=== PATIENT | male | born 1975 | race Hispanic/Latino ===

== ENCOUNTER 2024-04-01 11:14 | Inpatient (IN) | payer BC ==
--- OUTSIDE RECORDS SUMMARY | 2024-04-01 11:17 | XMS REPORT | Continuity of Care Document ---
Author Name Unknown Address [address] [facility] [facility] [address] [place] [address] [facility] thconnect Address [address] [facility] [place] [address] Care Team Providers Care Licensed Investment Sales Assistant Name Role Phone Dereck MINOR, Kandi Primary Care Physician Rhys TOBIN, Lizzette Gonzalez Attending Clinician Unavailab charli Slade MD, Mague Attending Clinician Jasen Finley Attending Clinician JASEN SCHWAB Attending Clinician Unavailable Doctor Unassigned, [place] Attending Clinician U navailable Payers Payer Name Policy Type Policy Number Effective Date Expirati on Date Source Problems Condition Name Condition Details Condition Category Status Onset Date Resolution Date Last Treatment Date Treating Clinician Comments Source No known active problems No known active problems Disease [facility] Allergies, Adverse Reactions, Alerts Allergy Name Allergy Type Status Severity Reaction(s) Onset Date Inactive Date Treating Clinician Comments Source Penicill ins Propensi ty to adverse reaction to drug Active 03-07 00:00: 00 Sai Banks NO KNOWN ALLERGIE S Drug Class Active [facility] Social History Social Habit Start Date Stop Date Quantity Comments Source Exposure to SARS-CoV-2 (event) 2022-05-03 00:00:00 2022-05-13 11:23:00 Not sure [facility] Sex Assigned At 1975 00:00:00 1975 00:00:00 [facility] Smoking Status Start Date Stop Date Source Tobacco smoking consumption unknown [facility] Medications Ordered Medication Name Filled Medication Name Start Date Stop Date Current Medication? Ordering Clinician Indication Dosage Frequency Signature (SIG) Comments Components Source cetirizine 10 mg tablet 03-07 00:00: 00 Yes 1mg Sai Banks losartan 25 mg tablet 03-07 00:00: 00 Yes 1mg Sai Banks cefdinir 300 mg capsule 03-07 00:00: 00 Yes 1mg Sai Banks USE 1 SPRAY IN EACH NOSTRIL ONCE DAILY. 05-08 00:00: 00 Yes 50 Sai Banks TAKE 1 TABLET EVERY MORNING NEEDED. 05-08 00:00: 00 Yes 10 Sai Banks TAKE 1 TABLET DIRECTED. 05-08 00:00: 00 11-18 00:00 :00 No 5 Sai Banks TOBRAMYCIN- DEXAMETH OPHTH SUSP 11-10 00:00: 00 Yes 301 Sai Banks BROMPHEN-PS E-DM 2-30-10 MG/5ML 05-13 00:00: 00 Yes [id number] Sai Banks TAKE 2 CAPSULES BY MOUTH EVERY 8 HOURS NEEDED FOR COUGH 05-13 00:00: 00 Yes Sai Banks bromphenira mine-pseudo ephedrine-D M (BROMFED DM) 2-30-10 mg/5 mL syrup 05-13 00:00: 00 Yes [id number] 5mL Take 5 mL by mouth 4 (four) times daily as needed for Congestion /Allergies . [facility] benzonatate 100 mg capsule 05-13 00:00: 00 Yes [id number] 200mg Take 2 capsules by mouth every 8 (eight) hours as needed for Cough. [facility] Immunizations Ordered Immunization Name Filled Immunization Name Date Status Comments Source Moderna COVID-19 Vaccine Moderna COVID-19 Vaccine 2021-03-14 00:00:00 Completed Sai Banks Moderna COVID-19 Vaccine Moderna COVID-19 Vaccine 2020-09-28 00:00:00 Completed Sai Banks Vital Signs Vital Name Observation Time Observation Value Comments S ource Systolic blood pressure 2022-05-13 16:24:00 138 mm[Hg] [facility] Diastolic blood pressure 2022-05-13 16:24:00 90 mm[Hg] [facility] Heart rate 2022-05-13 16:24:00 55 /min [facility] Body temperature 2022-05-13 16:24:00 36.5 Zulma [facility] Respiratory rate 2022-05-13 16:24:00 18 /min [facility] Body height 2022-05-13 16:24:00 162.6 cm [facility] Body weight 2022-05-13 16:24:00 70.126 kg [facility] BMI 2022-05-13 16:24:00 26.54 kg/m2 [facility] Oxygen saturation in Arterial blood by Pulse oximetry 2022-05-13 16:24:00 100 /min [facility] BP Systolic 2024-03-18 15:04:00 132 mm[Hg] Step hen Susan Banks BP Diastolic 2024-03-18 15:04:00 86 mm[Hg] Cem phen Susan Banks Weight Measured 2024-03-18 15:04:00 155.00 pounds Sai Banks Height Measured 2024-03-18 15:04:00 63.00 inches Sai Banks Body Temperature 2024-03-18 15:04:00 97.10 degrees Sai Banks Heart Rate 2024-03-18 15:04:00 64.00 /min Radha en F Darren Respiratory Rate 2024-03-18 15:04:00 18.00 /min Sai F Darren Heart Rate 2024-03-07 08:00:00 76.00 /min Radha en F Darren Respiratory Rate 2024-03-07 08:00:00 20.00 /min Sai F Darren BP Systolic 2024-03-07 08:00:00 138 mm[Hg] Step hen F Darren BP Diastolic 2024-03-07 08:00:00 100 mm[Hg] Cem phen Susan Banks Weight Measured 2024-03-07 08:00:00 159.00 pounds Sai Banks Height Measured 2024-03-07 08:00:00 63.00 inches Sai Banks Body Temperature 2024-03-07 08:00:00 97.50 degrees Sai F Darren BP Systolic 2024-02-08 15:44:00 122 mm[Hg] Step hen F Darren BP Diastolic 2024-02-08 15:44:00 76 mm[Hg] Cem phen F Darren Weight Measured 2024-02-08 15:44:00 158.00 pounds Sai F Darren Height Measured 2024-02-08 15:44:00 64.00 inches Sai F Darren Body Temperature 2024-02-08 15:44:00 97.90 degrees Sai F Darren Heart Rate 2024-02-08 15:44:00 70.00 /min Radha en F Darren Respiratory Rate 2024-02-08 15:44:00 18.00 /min Sai F Darren BP Systolic 2023-11-16 08:32:00 126 mm[Hg] Step hen F Darren BP Diastolic 2023-11-16 08:32:00 82 mm[Hg] Cem phen F Darren Weight Measured 2023-11-16 08:32:00 157.00 pounds Sai F Darren Height Measured 2023-11-16 08:32:00 64.00 inches Sai F Darren Body Temperature 2023-11-16 08:32:00 98.10 degrees Sai F Darren Heart Rate 2023-11-16 08:32:00 61.00 /min Radha en F Darren Respiratory Rate 2023-11-16 08:32:00 16.00 /min Sai F Darren BP Systolic 2023-09-21 08:19:00 130 mm[Hg] Step hen F Darren BP Diastolic 2023-09-21 08:19:00 78 mm[Hg] Cem phen F Darren Weight Measured 2023-09-21 08:19:00 161.00 pounds Sai F Darren Height Measured 2023-09-21 08:19:00 64.00 inches Sai F Darren Body Temperature 2023-09-21 08:19:00 97.60 degrees Sai F Darren Heart Rate 2023-09-21 08:19:00 66.00 /min Radha en F Darren Respiratory Rate 2023-09-21 08:19:00 20.00 /min Sai F Darren BP Systolic 2023-05-08 08:15:00 120 mm[Hg] Step hen F Darren BP Diastolic 2023-05-08 08:15:00 78 mm[Hg] Cem Banks Weight Measured 2023-05-08 08:15:00 155.00 pounds Sai Banks Height Measured 2023-05-08 08:15:00 64.00 inches Sai Bnaks Body Temperature 2023-05-08 08:15:00 98.40 degrees Sai Banks Heart Rate 2023-05-08 08:15:00 59.00 /min Radha en Susan Banks Respiratory Rate 2023-05-08 08:15:00 18.00 /min Sai Banks Procedures Procedure Date / Time Performed Performing Clinicia n Source POCT MOLECULAR FLU 2022-05-13 16:37:00 Jasen Schwab [facility] ASSIGNMENT OF BENEFITS 2022-05-13 16:09:30 Docto r Unassigned, Ossian [facility] Encounters Start Date/Time End Date/Time Encounter Type Admission Type Attending [facility] Facility Care Department Encounter ID Source 2024-03-18 14:55:18 2024-03-18 14:55:18 Outpatient [facility] [id number] Sai Banks 2024-03-18 00:00:00 2024-03-18 00:00:00 Outpatient Visit [facility] [id number] Sai Banks 2024-03-07 07:55:20 2024-03-07 07:55:20 Outpatient [facility] [id number] Sai Banks 2024-03-07 00:00:00 2024-03-07 00:00:00 Outpatient Visit [facility] [id number] Sai Banks 2022-05-14 00:00:00 2022-05-14 00:00:00 Letter (Out) Lizzette Joiner [facility] [id number] [facility] 2022-05-13 11:00:00 2022-05-13 11:41:25 Urgent Care Mague Slade, [facility] [id number] [facility] 2022-05-13 11:00:00 2022-05-13 11:41:25 Outpatient Myles SCHWAB [facility] [id number] [facility] 2022-05-13 11:00:00 2022-05-13 11:00:00 Outpatient Myles SCHWAB [facility] [id number] [facility] 2022-05-13 00:00:00 2022-05-13 00:00:00 Orders Only Doctor Unassigned, Ossian [facility] [id number] [facility] Results Test Description Test Time Test Comments Results Result Co mments Source [id number] 16:48:33* Test Item Value Reference Range Interpretation Comme nts POCT Molecular FluA (test co de = 40236-9) Negative Negative POCT Molecular FluB (test co de = 11849-6) Negative Negative Lab Interpretation (test cod e = [id number]) Normal [facility] Notes Date/Time Note Provider Source Sai DavisRuthie 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, SHOP, GO TO THE PARK, GET OUT OF THE HOUSE EVERYDAY 2023-05-08 BALANCED DIET WITH MEAT AND FRUITS AND V EGETABLES 2023-05-08 CETIRAZINE 10MG 1 PO QD - obando s otc- note for work RECOMMENDATIONS KEEP PETS OUTDOORS AND BATH THEM FREQUENTLY SINDY PLASTIC PILLOW AND MATTRESS COVERS CHANGE THE AIR CONDITIONING FILTER OR HEPA-FILTER VACUUM WINE MERCHANT STAY INDOORS WITH THE WINDOWS SHUT DURING YOUR ALLERGY SEASON IDENTIFY YOUR ALLERGENS THAT ARE GROWING AND AVOIDANCE- AVOID CIGARETTE SMOKE 2023-05-08 had fatigue -pt tested himse lf for COVID NEGATIVE /PT STATEMENT - NO FEVER TODAY - RETURN TO WORK NO RESTRICTIONS 2023-05-08 GREAT SHAPE diet and exercise 2023-09-21 wants to return to work with no restrict ions- feeling better 2023-11-[address] Pierce cardiolog ist [phone] brother has a congenital heart problem that required open heart surgery today f/u PRn 2024-02-08 Cefdinir 300MG 1 TAB PO BID- 10 DAYS ZYRTEC 1 TAB PO QD IBUPROFEN 400MG 1 OR 2 PO QD PRN FOR FEVER- pt obando at home REFUSED STREP TEST 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 DASH diet, Sodium reduction <2.4 g/day Weight reduction, Exercise 150 mins/wk Limit alcohol and caffeine consumption, Smoking cessation 2024-03-07 Sai Banks [facility]
[2024-04-01] MEDS ORDERED: NITROGLYCERIN 0.4 MG/TAB SL ONE (11:41)
[2024-04-01] MEDS ORDERED: ASPIRIN 81 MG CHEWABLE TABLET ONE (11:41)
[2024-04-01 12:24] LABS: Absolute Eosinophils 0.2 K/uL (0-0.5); Absolute Lymphocytes (CBC) 1.4 K/uL (0.7-4.9); Absolute Monocytes 0.5 K/uL (0.1-1.3); Absolute Neutrophil 3.3 K/uL (1.8-8.0); Basophils % 0.6 % (0-1.3); Eosinophils % 3.8 % (0-4.4); Hematocrit 48.1 % (39.6-49.0); Hemoglobin 15.9 g/dL (13.6-17.9); Lymphocytes % 25.1 % (15.3-44.8); MCH 29.3 pg (27.0-35.0); MPV 8.6 fL (7.6-11.3); Monocytes % 9.9 % (3.3-12.3); Neutrophils % 60.6 % (41.7-73.7); Platelets 204 thou/uL (152-406); RBC Red Blood Cell Count 5.41 M/uL (4.33-5.43); Red Cell Distribution Width 13.5 % (12.1-15.2)
[2024-04-01 12:30] LABS: Albumin/Globulin Ratio 1.1 (1.1-1.8); Anion Gap 9.9 mEq/L (5.0-15.0); Bilirubin Direct 0.2 mg/dL (0-0.2); Bilirubin Indirect, Calculated 0.7 mg/dL (0.2-0.8); Bilirubin Total 0.9 mg/dL (0.2-1.0); Globulin 3.5 g/dL (2.3-3.5); Magnesium 2.2 mg/dL (1.6-2.4); Potassium 3.9 mEq/L (3.5-5.1); Protein, Total 7.5 g/dL (6.4-8.2); Troponin High Sensitivity 4.5 pg/mL (<58.9)
[2024-04-01] MEDS ORDERED: HEPA 1000U/500MLS 2,000 UNIT/1,000 ML BAG IV ONE (12:35)
[2024-04-01] MEDS ORDERED: MIDAZOLAM HCL 2 MG/2 ML INJ ONE (12:36)
[2024-04-01] MEDS ORDERED: LIDOCAINE 1% 20 ML MDV ONE (12:36)
[2024-04-01] MEDS ORDERED: VERAPAMIL HCL 10 MG/4 ML VIAL IV ONE (12:36)
[2024-04-01] MEDS ORDERED: FENTANYL CITR 100 MCG/2 ML ONE (12:37)
[2024-04-01] MEDS ORDERED: HEPARIN 5000 UNIT/ML 1 ML VIAL ONE (12:37)
[2024-04-01] MEDS ORDERED: ATROPINE SULF 1 MG/10 ML SYR IV ONE (12:37)
[2024-04-01] MEDS ORDERED: TICAGRELOR 90 MG TABLET PO ONE (12:38)
[2024-04-01] MEDS ORDERED: HEPARIN 10,000 UNIT/10 ML VIAL IV ONE (12:38)
[2024-04-01] MEDS ORDERED: CLOPIDOGREL 75 MG TABLET ONE (12:38)
[2024-04-01] MEDS ORDERED: NITROGLYCERIN/D5W 50 MG/250 ML BTL IV ONE (12:39)
[2024-04-01] MEDS ORDERED: ASPIRIN 325 MG TAB ONE (12:39)
--- NOTE | 2024-04-01 12:47 | EDPHYS ---
Physician Documentation [facility] Name: Elmer Escalante Age: 48 yrs Sex: Male : 1975 Arrival Date: 04/01/2024 Time: 11:14 Bed 8 Private MD: ED Physician Pedro Heredia HPI: 04/01 11:43 This 48 yrs old Male presents to ER via Ambulatory with complaints of sent by rt pcp:abnormal stress test. 11:43 Patient was sent from Dr. Pierce's office for failed stress test, continued chest pain. rt Patient has had intermittent substernal chest pain for about a month. Denies aggravating relieving factors, denies other associated complaints. Symptoms are moderate in severity, no other aggravating or allieviating factors.. Historical: - Allergies: 11:36 PENICILLINS; hb - Home Meds: 11:36 None [Active]; hb - PMHx: 11:36 None; hb - PSHx: 11:36 None; hb - Immunization history:: Adult Immunizations up to date. - Infectious Disease History:: Denies. - Social history:: Smoking status: Patient denies any tobacco usage or history of. - Family history:: not pertinent. ROS: 11:43 Constitutional: Negative for fever, chills, and weight loss, Respiratory: Negative for rt shortness of breath, cough, wheezing, and pleuritic chest pain, Abdomen/GI: Negative for abdominal pain, nausea, vomiting, diarrhea, and constipation, MS/Extremity: Negative for injury and deformity, Skin: Negative for injury, rash, and discoloration, Neuro: Negative for headache, weakness, numbness, tingling, and seizure, 11:43 Cardiovascular: Positive for chest pain, Negative for edema, Exam: 11:43 Constitutional: This is a well developed, well nourished patient who is awake, alert, rt and in no acute distress. Chest/axilla: Normal chest wall appearance and motion. Nontender with no deformity. No lesions are appreciated. Cardiovascular: Regular rate and rhythm with a normal S1 and S2. No gallops, murmurs, or rubs. Normal PMI, no JVD. No pulse deficits. Respiratory: Lungs have equal breath sounds bilaterally, clear to auscultation and percussion. No rales, rhonchi or wheezes noted. No increased work of breathing, no retractions or nasal flaring. Abdomen/GI: Soft, non-tender, with normal bowel sounds. No distension or tympany. No guarding or rebound. No evidence of tenderness throughout. MS/ Extremity: Pulses equal, no cyanosis. Neurovascular intact. Full, normal range of motion. Neuro: Awake and alert, GCS 15, oriented to person, place, time, and situation. Cranial nerves II-XII grossly intact. Motor strength 5/5 in all extremities. Sensory grossly intact. Cerebellar exam normal. Normal gait. 11:43 ECG was reviewed by the Attending Physician. Vital Signs: 11:35 BP 141 / 90; Pulse 55; Resp 16; Temp 97.3; Pulse Ox 100% on R/A; Weight 69.85 kg; hb Height 5 ft. 4 in. ; Pain 1/10; 11:36 BP 141 / 89; Pulse 51; Resp 16; Pulse Ox 99% on R/A; db 11:50 BP 129 / 81; Pulse 57; Pulse Ox 95% ; Pain 0/10; db 12:25 BP 128 / 83; Pulse 52; Resp 16; Pulse Ox 96% on R/A; db 11:35 Body Mass Index 26.43 (69.85 kg, 162.56 cm) hb 11:35 Pain Scale: Adult hb 11:50 Pain Scale: Adult db 11:50 POST NITROGLYCERINE ADMINISTRATION X 1 db MDM: 11:28 Patient medically screened. rt 12:46 Differential Diagnosis ACS, CAD, chest pain. Data reviewed: vital signs, nurses notes. rt Consideration of Admission/Observation Patient was admitted/placed on observation. Management of patient was discussed with the following: Theater Company Producer: Curriculum Assistant Principal to take patient to the Mapping Specialist. Care significantly affected by the following chronic conditions: Hypertension. Counseling: I had a detailed discussion with the patient and/or guardian regarding the historical points, exam findings, and any diagnostic results supporting the discharge/admit diagnosis, lab results, the need for further work-up and treatment in the hospital. Response to treatment: There is no appreciated change of the patient's symptoms at this time. 04/01 11:34 Order name: Basic Metabolic Panel; Complete Time: 12:43 rt 04/01 11:34 Order name: CBC with Diff; Complete Time: 12:43 rt 04/01 11:34 Order name: LFT's; Complete Time: 12:43 rt 08 11:34 Order name: Magnesium; Complete Time: 12:43 rt 04/01 11:34 Order name: NT PRO-BNP; Complete Time: 12:43 rt 04/01 11:34 Order name: PT-INR; Complete Time: 13:20 rt 04/01 11:34 Order name: Troponin HS; Complete Time: 12:43 rt 04/01 11:34 Order name: Ptt, Activated; Complete Time: 13:20 rt 04/01 12:29 Order name: CL LEFT HEART WITHOUT LV EDMS 04/01 13:46 Order name: CL INTRO/SHEATH NON-PEEL HEART EDMS 04/01 13:46 Order name: CL LHRT CATH WITH ANGIO EDMS 04/01 13:46 Order name: CL TIME CHARGE 1ST HOUR EDMS 04/01 13:46 Order name: CL ULTRASOUND GUIDANCE ACCESS EDMS 04/01 11:34 Order name: Cardiac monitoring; Complete Time: 11:46 rt 04/01 11:34 Order name: EKG - Nurse/Tech; Complete Time: 11:46 rt 04/01 11:34 Order name: IV Saline Lock; Complete Time: 11:46 rt 04/01 11:34 Order name: Labs collected and sent; Complete Time: 11:46 rt 04/01 11:34 Order name: O2 Per Protocol; Complete Time: 11:46 rt 04/01 11:34 Order name: O2 Sat Monitoring; Complete Time: 11:46 rt EC:43 Rate is 50 beats/min. Rhythm is regular, Sinus bradycardia with Occasional PVCs. QRS rt [place] is Normal. SD interval is normal. QRS interval is normal. QT interval is normal. No Q waves. Clinical impression: NSR w/ Non-specific ST/T Changes. Administered Medications: 11:42 Drug: Aspirin PO Chewable Tablet 324 mg PO once; 81 mg tablets x 4 Route: PO; db 14:00 Follow up: Response: No adverse reaction db 11:45 Drug: Nitroglycerin Sublingual 0.4 mg Sublingual once; every five minute if needed x3 db Route: Sublingual; 14:00 Follow up: Response: No adverse reaction db Disposition Summary: 04/01/24 12:46 Hospitalization Ordered Notes: Hospitalization Status: Observation rt Provider: Javier Nichols rt Location: Telemetry/MedSurg (observation) rt Condition: Fair rt Problem: new rt Symptoms: are unchanged rt Bed/Room Type: Standard rt Room Assignment: rt Diagnosis - Chest pain, unspecified rt Discharge Instructions: - Discharge Summary Sheet bd Forms: - SBAR form bd - Medication Reconciliation Form rt - Leadership Thank You Letter rt Signatures: Dispatcher [employer] EDSonya Bustamante RN RN hb Benton, Danielle, RN RN db Turkington, Ryan, MD MD rt Corrections: (The following items were deleted from the chart) 11:34 11:34 BASIC METABOLIC PANEL+C.LAB.BRZ ordered. EDMS EDMS 11:34 11:34 CBC+H.LAB.BRZ ordered. EDMS EDMS 11:34 11:34 HEPATIC FUNCTION+C.LAB.BRZ ordered. EDMS EDMS 11:34 11:34 MAGNESIUM+C.LAB.BRZ ordered. EDMS EDMS 11:34 11:34 PROBNP+C.LAB.BRZ ordered. EDMS EDMS 11:34 11:34 PROTIME (+INR)+COAG.LAB.BRZ ordered. EDMS EDMS 11:34 11:34 Troponin High Sensitivity+C.LAB.BRZ ordered. EDMS EDMS 11:34 11:34 PTT, ACTIVATED+COAG.LAB.BRZ ordered. EDMS EDMS 11:34 11:34 Chest Single View+RAD.RAD.BRZ ordered. EDMS EDMS
--- NOTE | 2024-04-01 12:47 | ER ---
Nurse's Notes [facility] Name: Elmer Escalante Age: 48 yrs Sex: Male : 1975 Arrival Date: 04/01/2024 Time: 11:14 Bed 8 Private MD: Diagnosis: Chest pain, unspecified Presentation: 04/01 11:35 Chief complaint: Sent by Dr. Pierce for abnormal stress test. Pt c/o intermittent left hb sided chest pain x 1 month. Coronavirus screen: At this time, the client does not indicate any symptoms associated with coronavirus-19. Ebola Screen: No symptoms or risks identified at this time. Initial Sepsis Screen: Does the patient meet any 2 criteria? No. Patient's initial sepsis screen is negative. Does the patient have a suspected source of infection? No. Patient's initial sepsis screen is negative. Risk Assessment: Do you want to hurt yourself or someone else? Patient reports no desire to harm self or others. Onset of symptoms was February 2024. 11:35 Method Of Arrival: Ambulatory hb 11:35 Acuity: MARGIE 2 hb Triage Assessment: 11:37 General: Appears in no apparent distress. Behavior is calm, cooperative. Pain: Pain hb currently is 1 out of 10 on a pain scale. Neuro: Level of Consciousness is awake, alert, obeys commands, Oriented to person, place, time, situation. Cardiovascular: Reports chest pain, Patient's skin is warm and dry. Respiratory: Respiratory effort is even, unlabored, Respiratory pattern is regular, symmetrical. Historical: - Allergies: 11:36 PENICILLINS; hb - Home Meds: 11:36 None [Active]; hb - PMHx: 11:36 None; hb - PSHx: 11:36 None; hb - Immunization history:: Adult Immunizations up to date. - Infectious Disease History:: Denies. - Social history:: Smoking status: Patient denies any tobacco usage or history of. - Family history:: not pertinent. Screenin:04 [facility] ED Fall Risk Assessment (Adult) History of falling in the last 3 months, db including since admission No falls in past 3 months (0 pts) Confusion or Disorientation No (0 pts) Intoxicated or Sedated No (0 pts) Impaired Gait No (0 pts) Mobility Assist Device Used No (0 pt) Altered Elimination Yes (1 pt) Score/Fall Risk Level 0 - 2 = Low Risk Oriented to surroundings, Maintained a safe environment. Abuse screen: Denies threats or abuse. Denies injuries from another. Nutritional screening: No deficits noted. Tuberculosis screening: No symptoms or risk factors identified. Assessment: 11:40 Reassessment: Patient appears in no apparent distress at this time. Patient and/or db family updated on plan of care and expected duration. Pain level reassessed. Patient is alert, oriented x 3, equal unlabored respirations, skin warm/dry/pink. General: Appears in no apparent distress. comfortable, Behavior is calm, cooperative. Pain: Complains of pain in chest. Neuro: Level of Consciousness is awake, alert, obeys commands, Oriented to person, place, time, situation. Cardiovascular: Reports chest pain. Respiratory: Airway is patent Respiratory effort is even, unlabored, Respiratory pattern is regular, symmetrical. 12:03 General: Appears in no apparent distress. comfortable, Behavior is calm, cooperative. db 12:30 Reassessment: Patient appears in no apparent distress at this time. Patient and/or db family updated on plan of care and expected duration. Pain level reassessed. Patient is alert, oriented x 3, equal unlabored respirations, skin warm/dry/pink. Vital Signs: 11:35 BP 141 / 90; Pulse 55; Resp 16; Temp 97.3; Pulse Ox 100% on R/A; Weight 69.85 kg; hb Height 5 ft. 4 in. ; Pain 1/10; 11:36 BP 141 / 89; Pulse 51; Resp 16; Pulse Ox 99% on R/A; db 11:50 BP 129 / 81; Pulse 57; Pulse Ox 95% ; Pain 0/10; db 12:25 BP 128 / 83; Pulse 52; Resp 16; Pulse Ox 96% on R/A; db 11:35 Body Mass Index 26.43 (69.85 kg, 162.56 cm) hb 11:35 Pain Scale: Adult hb 11:50 Pain Scale: Adult db 11:50 POST NITROGLYCERINE ADMINISTRATION X 1 db Vitals: 11:50 Cardiac Rhythm Assessment Regular Junctional rhythm. db ED Course: 11:20 Patient arrived in ED. ra3 11:21 Pedro Heredia MD is Attending Physician. rt 11:36 Triage completed. hb 11:37 Arm band placed on. hb 11:42 EKG done, reviewed by Pedro Heredia MD. db 11:45 Stephanie Ortega, RN is Primary Nurse. db 11:50 Missed attempt(s): 20 gauge in left antecubital area. BY CASEWORKER. Bleeding controlled, db band aid applied, catheter tip intact. 11:58 Initial lab(s) drawn, by me, sent to lab. Inserted saline lock: 20 gauge in right db forearm, using aseptic technique. Blood collected. Flushed with 10 mL NS. 12:04 Patient has correct armband on for positive identification. Bed in low position. Call db light in reach. Side rails up X 1. Client placed on continuous cardiac and pulse oximetry monitoring. NIBP monitoring applied. cash grain grower on. Pulse ox on. NIBP on. Warm blanket given. 12:30 Provided Education on: ADMISSION TO OIL WELL SHOOTER. db 12:30 No provider procedures requiring assistance completed. Patient admitted, IV remains in db place. 12:44 Javier Nichols MD is Hospitalizing Provider. rt Administered Medications: 11:42 Drug: Aspirin PO Chewable Tablet 324 mg PO once; 81 mg tablets x 4 Route: PO; db 14:00 Follow up: Response: No adverse reaction db 11:45 Drug: Nitroglycerin Sublingual 0.4 mg Sublingual once; every five minute if needed x3 db Route: Sublingual; 14:00 Follow up: Response: No adverse reaction db Medication: 12:30 VIS not applicable for this client. db Outcome: 12:30 Admitted to Public Health Aide accompanied by nurse, db 12:30 Condition: stable 12:30 Instructed on the need for admit, 12:46 Decision to Hospitalize by Provider. rt 14:00 Patient left the ED. db Signatures: Sonya Corona, RN RN Stephanie Ortega, RN RN Pedro Araya MD MD rt Judi Lomax ra3
[2024-04-01] MEDS ORDERED: NA CHLORIDE 0.9% 500 ML ONE (13:01)
[2024-04-01 13:15] LABS: PT Prothrombin Time 10.1 SECONDS (9.4-12.5); PTT, Activated Partial Thromb 30.5 SECONDS (24.3-36.9); Protime INR 0.9
[2024-04-01] MEDS ORDERED: ACETAMINOPHEN 500 MG TAB PO PRN (14:29)
[2024-04-01] MEDS ORDERED: ONDANSETRON 4 MG/2 ML VIAL IV PRN (14:29)
[2024-04-01] MEDS ORDERED: HEPARIN/D5W 25,000 UNIT/500 ML BAG IV SCH (15:00)
[2024-04-01 15:42] VITALS: BMI 26.4
--- NOTE | 2024-04-01 15:57 | OP ---
Date of Procedure: 04/01/2024 Surgeon: GAETANO BLACK Procedures Performed: 1.Selective coronary angiogram. 2.Left heart catheterization. Indication: Unstable angina with grossly abnormal stress test. Access: Right radial artery 6-Sol[place] Islander closed with TR band. Complications: None. Bleeding: Less than 50 mL. Anesthesia: Total sedation time was 45 minutes, used fentanyl and Versed. Description Of Procedure: After risks, benefits, alternatives were explained, patient agreed to the procedure and signed informed consent. The patient was brought into cardiac catheterization laborato , prepped and draped in the usual sterile fashion. Then, I accessed right radial artery using [employer] (NIH) atric micropuncture kit, placed a 6-Sol[place] Islander Slender sheath and took 5-[place] Islander [place] 4.0 catheter over a J-wire into the aortic root across the aortic valve, measured the LVEDP and then engaged the left ma in, took standard views and then in the RCA, took standard views and then I removed the catheter and the sheath. Placed TR band with good hemostasis. Findings: 1.Left main; large and normal. 2.LAD; large vessel proximally and mid, but distally it becomes very small with moderate diffuse dis ease. Diagonal branches are normal LAD. 3.Left circumflex is large vessel and is normal. Normal OM branches. 4.RCA; large and dominant and normal. 5.Elevated LVEDP at 19 mmHg. Conclusion: 1.Mild nonobstructive coronary artery disease, likely has small vessel disease with the microvascula ture. 2.Elevated LVEDP. Recommendation: Start him on Imdur 30 mg daily. If tolerates that to be discharged on it and to fol low up with me in the office early next week and we will adjust medications. In terms of the elevate d LVEDP, he will benefit from a strict low-salt diet and diuretics. We will plan working on that on an outpatient basis. /ADALBERTO Voice ID: [id number] Report ID: [id number]
[2024-04-01] MEDS: METOPROLOL TAR 50 MG TAB PO SCH (21:00)
[2024-04-01] MEDS: ATORVASTATIN 80 MG TAB PO SCH (21:25)
[2024-04-02] MEDS ORDERED: METOPROLOL XL 25 MG TAB PO SCH (06:00)
[2024-04-02 06:15] LABS: Absolute Eosinophils 0.4 K/uL (0-0.5); Absolute Lymphocytes (CBC) 1.6 K/uL (0.7-4.9); Absolute Monocytes 0.7 K/uL (0.1-1.3); Basophils % 0.7 % (0-1.3); Eosinophils % 6.2 % (0-4.4); Hematocrit 45.2 % (39.6-49.0); Hemoglobin 15.4 g/dL (13.6-17.9); Lymphocytes % 24.1 % (15.3-44.8); MCH 30.1 pg (27.0-35.0); MCHC 34.1 g/dL (32.0-36.0); MCV 88.3 fL (80-100); MPV 8.5 fL (7.6-11.3); Monocytes % 10.2 % (3.3-12.3); Neutrophils % 58.8 % (41.7-73.7); Nucleated Red Blood Cells % 0.1 % (0-0); Platelets 178 thou/uL (152-406); RBC Red Blood Cell Count 5.12 M/uL (4.33-5.43); Red Cell Distribution Width 13.6 % (12.1-15.2)
--- NOTE | 2024-04-02 06:35 | P.DS ---
Admission Date: 04/01/24 Discharge Date: 04/02/24 Hospital Course: 48-year-old male presents for abnormal stress test. Patient was evaluated by Dr. Pierce, taken to the Tobacco Sieve Operator for failed stress test. He reports history of chest pain, rule out [place]. Serial troponins were normal. Post cardiac cath, cardiology recommendations. No intervention, cardiology medication adjustment mentation, he needs to follow-up with cardiology next week. Start Imdur Continue metoprolol, continue Lipitor continue Plavix Continue home medicines as previously prescribed GOAL: Clear understanding of disease process INSTRUCTIONS: Physician Discharge Instructions: -Follow-up with PCP in 1 to 2 weeks -Please call Dr. Nichols at [phone] if any questions regarding hospital stay -Please call nursing station at [phone] if any nursing or medication questions -Return to the emergency room if symptoms worsen Diet: ADA, low sodium Activity: Fall precautions Start him on Imdur 30 mg daily. If tolerates that to be discharged on it and to follow up with me in the office early next week and we will adjust medications. In terms of the elevated LVEDP, he will benefit from a strict low-salt diet and diuretics. We will plan working on that on an outpatient basis <Janice Ryder - Last Filed: 04/02/24 06:43> Admission Date: 04/01/24 Discharge Date: 04/02/24 - Problems (1) Unstable angina Status: Acute (2) Positive cardiac stress test Status: Acute (3) Hyperlipidemia Status: Acute (4) Hypertension Status: Acute Brief History of Present Illness: Patient is a 48-year-old gentleman came to the hospital with chest pain. Ritu still has been having chest pain on and off for the last few weeks. He has had cardiac workup done as an outpatient including a nuclear medicine stress test which was positive. Patient came into the emergency room with chest discomfort. Patient was taken to the cardiac catheterization lab for further evaluation. In the cardiac Tobacco Sieve Operator patient was found to have nonobstructive coronary artery disease. Patient will be treated medically and patient will be admitted to the hospital overnight for admission. Hospital Course: Patient chart was reviewed and patient was seen and examined. LYDIA history and physical reviewed as well. Agree with the assessment and plan. Patient presented with unstable angina. Cardiac cath was unremarkable. Medical management. Patient had elevated left ventricular end-diastolic pressures so we will also use diuretics. Most of the MDM was done by myself and plan of care was discussed with LYDIA as well as the patient. Plan to discharge with outpatient cardiology follow-up. <Javier Nichols - Last Filed: 04/02/24 11:43> Disposition: ROUTINE DISCHARGE Discharge Condition: GOOD Vital Signs/Physical Exam: Temp Pulse Resp BP Pulse Ox 96.9 F 54 18 132/76 99 04/02/24 04:00 04/02/24 04:00 04/02/24 04:00 04/02/24 04:00 04/02/24 04:00 Laboratory Data at Discharge: WBC 6.70 thou/uL (4.3-10.9) 04/02/24 06:00 Hgb 15.4 g/dL (13.6-17.9) 04/02/24 06:00 Hct 45.2 % (39.6-49.0) 04/02/24 06:00 Plt Count 178 thou/uL (152-406) 04/02/24 06:00 PT 10.1 SECONDS (9.4-12.5) 04/01/24 11:57 INR 0.90 04/01/24 11:57 APTT 30.5 SECONDS (24.3-36.9) 04/01/24 11:57 Sodium 141 mEq/L (136-145) 04/01/24 11:57 Potassium 3.9 mEq/L (3.5-5.1) 04/01/24 11:57 BUN 15 mg/dL (7-18) 04/01/24 11:57 Creatinine 0.84 mg/dL (0.70-1.30) 04/01/24 11:57 Glucose 116 mg/dL (74-106) H 04/01/24 11:57 Magnesium 2.2 mg/dL (1.6-2.4) 04/01/24 11:57 Total Bilirubin 0.9 mg/dL (0.2-1.0) 04/01/24 11:57 AST 37 U/L (15-37) 04/01/24 11:57 ALT 51 U/L (16-61) 04/01/24 11:57 Alkaline Phosphatase 70 U/L (45-117) 04/01/24 11:57 <Janice Ryder Last Filed: 04/02/24 06:43> Vital Signs/Physical Exam: Temp Pulse Resp BP Pulse Ox 97.6 F 54 24 H 132/71 98 04/02/24 11:31 04/02/24 11:31 04/02/24 11:31 04/02/24 11:31 04/02/24 11:31 General: Alert, In no apparent distress, Oriented x3 Laboratory Data at Discharge: WBC 6.70 thou/uL (4.3-10.9) 04/02/24 06:00 Hgb 15.4 g/dL (13.6-17.9) 04/02/24 06:00 Hct 45.2 % (39.6-49.0) 04/02/24 06:00 Plt Count 178 thou/uL (152-406) 04/02/24 06:00 PT 10.1 SECONDS (9.4-12.5) 04/01/24 11:57 INR 0.90 04/01/24 11:57 APTT 30.5 SECONDS (24.3-36.9) 04/01/24 11:57 Sodium 136 mEq/L (136-145) D 04/02/24 06:00 Potassium 4.0 mEq/L (3.5-5.1) 04/02/24 06:00 BUN 17 mg/dL (7-18) 04/02/24 06:00 Creatinine 0.86 mg/dL (0.70-1.30) 04/02/24 06:00 Glucose 127 mg/dL (74-106) H 04/02/24 06:00 Phosphorus 2.9 mg/dL (2.5-4.9) 04/02/24 06:00 Magnesium 2.1 mg/dL (1.6-2.4) 04/02/24 06:00 Total Bilirubin 0.6 mg/dL (0.2-1.0) 04/02/24 06:00 AST 29 U/L (15-37) 04/02/24 06:00 ALT 43 U/L (16-61) 04/02/24 06:00 Alkaline Phosphatase 65 U/L (45-117) 04/02/24 06:00 Triglycerides 99 mg/dL (<150) 04/02/24 06:00 Cholesterol 153 mg/dL (<200) 04/02/24 06:00 HDL Cholesterol 42 mg/dL (40-60) 04/02/24 06:00 Cholesterol/HDL Ratio 3.64 04/02/24 06:00 <NicholsLisbethcalvin Becky - Last Filed: 04/02/24 11:43> <BritniJanice - Last Filed: 04/02/24 06:43> Diet: AHA Activity: Ad nilda Time spent managing pt's care (in minutes): 35 <NicholsLisbethcalvin Becky - Last Filed: 04/02/24 11:43> Home Medications: Aspirin Chewable [Aspirin Chewable*] 81 mg PO DAILY 30 Days #30 tab.chew 04/02/24 Atorvastatin Calcium [Lipitor] 20 mg PO BEDTIME 30 Days #30 tab 04/02/24 Furosemide [Lasix*] 20 mg PO DAILY 30 Days #30 tab 04/02/24 Isosorbide Mononitrate [Isosorbide Mononitrate ER] 30 mg PO 30 MIN BEFORE HS 30 Days #30 tab 04/02/24 Metoprolol Succinate [Toprol Xl*] 25 mg PO DAILY 30 Days #30 tab 04/02/24 Potassium Oral Tab [Klor-Con 10 mEq Tab*] 10 meq PO DAILY 30 Days #30 tab 04/02/24 New Medications: Aspirin Chewable [Aspirin Chewable*] 81 mg PO DAILY 30 Days #30 tab.chew Isosorbide Mononitrate [Isosorbide Mononitrate ER] 30 mg PO 30 MIN BEFORE HS 30 Days #30 tab Potassium Oral Tab [Klor-Con 10 mEq Tab*] 10 meq PO DAILY 30 Days #30 tab Furosemide [Lasix*] 20 mg PO DAILY 30 Days #30 tab Atorvastatin Calcium [Lipitor] 20 mg PO BEDTIME 30 Days #30 tab Metoprolol Succinate [Toprol Xl*] 25 mg PO DAILY 30 Days #30 tab Physician Discharge Instructions: 48-year-old male presents for abnormal stress test. Patient was evaluated by Dr. Pierce, taken to the Tobacco S[facility] Operator for failed stress test. He reports history of chest pain, rule out [place]. Serial troponins were normal. Post cardiac cath, cardiology recommendations. No intervention, cardiology medica tion adjustment mentation, he needs to follow-up with cardiology next week. Assessment unstable Angina, Chest pain Start Imdur 30 daily lasix 20 daily potassium 10 mg daily lipitor 20 mg bedtime aspirin 81 mg daily start BP log, take with Dr paredes, Follow up with Dr Pierce next wee Continue home medicines as previously prescribed GOAL: Clear understanding of disease process INSTRUCTIONS: Physician Discharge Instructions: -follow up with Dr Pierce in week -Follow-up with PCP in 1 to 2 weeks -Please call Dr. Nichols at [phone] if any questions regarding hospital stay -Please call nursing station at [phone] if any nursing or medication questions -Return to the emergency room if symptoms worsen Diet: ADA, low sodium diet Followup: Herson Pierce MD [ACTIVE - CAN ADMIT] - 1 Week (call to schedule an appointment) Sarah Pradhan FNP [Primary Care Provider] - 1-2 Weeks (call to schedule an appointment)
[2024-04-02 06:36] LABS: Albumin 3.4 g/dL (3.4-5.0); Bilirubin Total 0.6 mg/dL (0.2-1.0); Globulin 3.3 g/dL (2.3-3.5); Magnesium 2.1 mg/dL (1.6-2.4); Phosphorus 2.9 mg/dL (2.5-4.9); Protein, Total 6.7 g/dL (6.4-8.2); Troponin High Sensitivity 16.2 pg/mL (<58.9)
[2024-04-02] MEDS ORDERED: METOPROLOL TAR 50 MG TAB PO SCH (08:00)
[2024-04-02] MEDS: ISOSORBIDE MONO SR 30 MG TAB PO SCH (08:31)
[2024-04-02] MEDS: POTASSIUM CL SA 10 MEQ TAB PO SCH (08:31)
[2024-04-02] MEDS: CLOPIDOGREL 75 MG TABLET PO SCH (08:31)
[2024-04-02] MEDS: FUROSEMIDE 20 MG TABLET PO SCH (08:31)
[2024-04-02] MEDS: ASPIRIN EC 81 MG TAB PO SCH (08:31)
[2024-04-02 08:32] VITALS: BP 132/71
[2024-04-02 08:46] VITALS: TEMP 97.6
[2024-04-02 08:56] VITALS: O2SAT 98
[2024-04-02] MEDS ORDERED: CLOPIDOGREL 75 MG TABLET PO SCH (09:00)
--- NOTE | 2024-04-02 10:48 | P.HP ---
Certification for Inpatient Patient admitted to: Inpatient With expected LOS: >2 Midnights Patient will require the following post-hospital care: None Practitioner: I am a practitioner with admitting privileges, knowledge of patient current condition, hospital course, and medical plan of care. Services: Services provided to patient in accordance with Admission requirements found in Title 42 Section 412.3 of the Code of Federal Regulations Patient History Date of Service: 04/01/24 Reason for admission: Unstable angina; positive nuclear medicine stress test History of Present Illness: Patient is a 48-year-old gentleman came to the hospital with chest pain. Patient has been having chest pain on and off for the last few weeks. He has had cardiac workup done as an outpatient including a nuclear medicine stress test which was positive. Patient came into the emergency room with chest discomfort. Patient was taken to the cardiac catheterization lab for further evaluation. In the cardiac [employer] Operator patient was found to have nonobstructive coronary artery disease. Patient will be treated medically and patient will be admitted to the hospital overnight for admission. Allergies No Known Allergies Allergy (Unverified 05/03/16 17:51) Home Medications: Aspirin Chewable [Aspirin Chewable*] 81 mg PO DAILY 30 Days #30 tab.chew 04/02/24 Atorvastatin Calcium [Lipitor] 20 mg PO BEDTIME 30 Days #30 tab 04/02/24 Furosemide [Lasix*] 20 mg PO DAILY 30 Days #30 tab 04/02/24 Isosorbide Mononitrate [Isosorbide Mononitrate ER] 30 mg PO 30 MIN BEFORE HS 30 Days #30 tab 04/02/24 Metoprolol Succinate [Toprol Xl*] 25 mg PO DAILY 30 Days #30 tab 04/02/24 Potassium Oral Tab [Klor-Con 10 mEq Tab*] 10 meq PO DAILY 30 Days #30 tab 04/02/24 - Past Medical/Surgical History Has patient received pneumonia vaccine in the past: No Diabetic: No -: diverticultiis -: Coronary artery disease -: hernia repair - Family History Father Medical History: Heart disease Mother Medical History: Other (see notes) Notes: dementia Brother Medical History: Stroke - Social History Smoking Status: Never smoker Alcohol use: Yes CD- Drugs: No Caffeine use: Yes Place of Residence: Home Review of Systems 10-point ROS is otherwise unremarkable Physical Examination - Vital Signs Temperature: 97.6 F Blood Pressure: 132/71 Pulse: 54 Respirations: 24 Pulse Ox (%): 98 - Physical Exam General: Alert, In no apparent distress, Oriented x3 HEENT: Atraumatic, PERRLA, Mucous membr. moist/pink, EOMI, Sclerae nonicteric Neck: Supple, 2+ carotid pulse no bruit, No LAD, Without JVD or thyroid abnormality Respiratory: Clear to auscultation bilaterally, Normal air movement Cardiovascular: Regular rate/rhythm, Normal S1 S2, No murmurs Gastrointestinal: Normal bowel sounds, Soft and benign, Non-distended, No tenderness Musculoskeletal: No clubbing, No swelling, No tenderness Integumentary: No rashes Neurological: Normal gait, Normal speech, Normal strength at 5/5 x4 extr, Normal tone, Sensation intact, Cranial nerves 3-12 intact, Normal affect Lymphatics: No axilla or inguinal lymphadenopathy - Studies Laboratory Data (last 24 hrs) 04/01/24 04/01/24 04/01/24 11:57 11:57 11:57 WBC 5.40 Hgb 15.9 Hct 48.1 Plt Count 204 PT 10.1 INR 0.90 APTT 30.5 Sodium 141 Potassium 3.9 BUN 15 Creatinine 0.84 Glucose 116 H Magnesium 2.2 Total Bilirubin 0.9 AST 37 ALT 51 Alkaline Phosphatase 70 Assessment & Plan - Problems (Diagnosis) (1) Unstable angina Status: Acute (2) Positive cardiac stress test Status: Acute (3) Hyperlipidemia Status: Acute (4) Hypertension Status: Acute - Plan -High-sensitivity troponin -Cardiology consultation -Cardiac catheterization -Repeat EKG -Lipid profile -Ethnoarchaeologist regarding modifying risk for cardiac disease Discharge Plan: Home Plan to discharge in: 24 Hours - Advance Directives Does patient have a Living Will: No Does patient have a Durable POA for Healthcare: No - Code Status/Comfort Care Code Status Assessed: Yes Code Status: Full Code Critical Care: No Time Spent Managing PTS Care (In Minutes): 45
--- NOTE | 2024-04-04 13:56 | EKG ---
Test Date: 2024-04-01 Test Time: 11:37:35 Compliance Administrator: JOSE MEASUREMENT RESULTS: Intervals: Rate: 50 IN: QRSD: 116 QT: 472 QTc: 430 [place]: P: IN: QRS: -17 T: 94 INTERPRETIVE STATEMENTS: Junctional rhythm with occasional premature ventricular complexes Anterolateral infarct, age undetermined Abnormal ECG No previous ECG available for comparison Electronically Signed On 04-04-24 13:48:07 CDT by Herson Pierce
== END 2024-04-02 09:57 | disposition home or self-care (01) | DRG 287 ==
LOC: ER 11:14 → 2ND 14:29
PROVIDERS: ADMIT Hospitalist; ATTEND Hospitalist
PROC: 4A023N7 Measurement of Cardiac Sampling and Pressure, Left Heart, Percutaneous Approach (ICD-10-PCS; principal; 2024-04-01)
PROC: B2111ZZ Fluoroscopy of Multiple Coronary Arteries using Low Osmolar Contrast (ICD-10-PCS; 2024-04-01)
DX: I25.110 Atherosclerotic heart disease of native coronary artery with unstable angina pectoris (principal); I10 Essential (primary) hypertension; E78.5 Hyperlipidemia, unspecified; Z88.0 Allergy status to penicillin
CPT/HCPCS: 36415; 76937; 80048; 80053; 80061; 80076; 83735; 83880; 84100; 84484; 85025; 85610; 85730; 93005; 93458; 99152; 99285; C1893; J0461; J1644; J2001; J2250; J3010; J7040; Q9966